=== PATIENT | female | born 1985 | race African-American/Black ===

== ENCOUNTER 2017-04-22 08:22 | Outpatient (CLI) | payer OTHER ==
--- NOTE | 2017-04-22 14:10 | ULT ---
ULTRASOUND OB COMPLETE STANDARD: HISTORY: Anatomy scan. High risk. COMPARISON: None. TECHNIQUE: Real-time doss scale and color evaluation of the gravid uterus is performed with a curvilinear trans ducer. FINDINGS: Placenta is anterior. This is separate from the cervix. Heart rate was documented at 141 b.p.m. The cervix measures 3 cm in length. The average ultrasound age is 20 weeks 1 day with estimated date of delivery 09/08/17. This is concor dant with the clinical age. Estimated weight is 13 ounces, 84th percentile. Biparietal diameter 19 weeks 3 days, 4.44 cm. Head circumference 19 weeks 3 days, 16.8 cm. Abdominal circumference 21 weeks 2 days, 16.14 cm. Femur length 20 weeks 1 day, 3.27 cm. The visualized spine including the cervicothoracic lumbar spine is normal as well as the bladder, ce rebellum, 4-chamber heart, stomach, cord insertion, posterior fossa, nose, and lips. Three-vessel c ord also normal. IMPRESSION: Normal anatomy scan with single viable intrauterine with average ultrasound 20 week 1 day, estimated date of delivery 09/08/17. POS: [facility]
== END 2017-04-22 08:23 | disposition home or self-care (01) ==
LOC: ULT 08:22
PROVIDERS: ATTEND Family Medicine
DX: O09.90 Supervision of high risk pregnancy, unspecified, unspecified trimester (principal)
CPT/HCPCS: 76805

== ENCOUNTER 2017-06-25 19:43 | Emergency (ER) | payer OTHER | END 2017-06-25 22:16 | disposition home or self-care (01) | LOC: ERS 19:43 | DX: O99.513 Diseases of the respiratory system complicating pregnancy, third trimester (principal); J11.1 Influenza due to unidentified influenza virus with other respiratory manifestations; J45.909 Unspecified asthma, uncomplicated; Z79.84 Long term (current) use of oral hypoglycemic drugs; Z3A.29 29 weeks gestation of pregnancy | CPT/HCPCS: 99283 ==

== ENCOUNTER 2017-08-30 07:58 | Outpatient (CLI) | payer OTHER ==
--- NOTE | 2017-08-30 09:38 | ULT ---
OB ULTRASOUND BIOPHYSICAL PROFILE: HISTORY: Size and dates and biophysical profile. FINDINGS: A single live intrauterine gestation is seen with measurements corresponding to an estimated gestatio nal age of 38 weeks 6 days and MARIBEL at 09/07/17. The estimated weight measures 3557 grams or 7 po unds and 13 ounces. measurements are as follows: BPD 9.77 cm, 40 weeks 0 days HC 33.71 cm, 38 weeks 5 days AC 34.47 cm, 38 weeks 3 days FL 7.54 cm, 38 weeks 4 days heart rate measures 127 bpm. OLAYINKA is 9.1 cm. The placenta is anteriorly located to the right w ithout evidence of placenta previa. presentation is vertex. A 3-vessel cord, stomach, bladder, and head are visualized. The remainder of the anatomy is not satisfactorily evaluated due to the body habitus of the patient. There is normal tone, breathing, movements, and amniotic fluid. The ultrasound biophysical pro file score is 8 out of 8. IMPRESSION: 1. Single live intrauterine of 38 weeks 6 days estimated gestational age and estimated mily e of delivery at 09/07/17. 2. Ultrasound biophysical profile score is 8 out of 8. POS: OFF
== END 2017-08-30 07:59 | disposition home or self-care (01) ==
LOC: ULT 07:58
PROVIDERS: ATTEND Family Medicine
DX: O24.414 Gestational diabetes mellitus in pregnancy, insulin controlled (principal); Z3A.38 38 weeks gestation of pregnancy
CPT/HCPCS: 76805; 76819

== ENCOUNTER 2017-09-05 05:26 | Inpatient (IN) | payer OTHER ==
[2017-09-05] MEDS ORDERED: Acetaminophen 500 MG TAB PO PRN (05:54)
[2017-09-05] MEDS ORDERED: Ondansetron HCl/PF 4 MG/2 ML Vial IVP PRN ×2 (05:54→11:01)
[2017-09-05] MEDS ORDERED: Promethazine HCl 25 MG/ML VIAL IM PRN ×2 (05:54→11:01)
[2017-09-05 05:59] VITALS: BMI 68.3
[2017-09-05] MEDS ORDERED: LR 500 ML/Oxytocin 10 units 500 ML IV SCH ×2 (06:00)
[2017-09-05] MEDS ORDERED: Misoprostol 200 MCG TAB RC PRN (06:00)
[2017-09-05] MEDS ORDERED: HYDROcodone/Acetaminophen 5/325 mg Tablet PO PRN (06:00)
[2017-09-05] MEDS ORDERED: LR / Pitocin 40 units/1000 ml 40 UNITS/1,000 ML BAG IV SCH (06:00)
[2017-09-05] MEDS ORDERED: Ibuprofen 800 MG TAB PO PRN (06:00)
[2017-09-05] MEDS ORDERED: Lidocaine 1% (PF) 30 ML VIAL SC PRN (06:00)
[2017-09-05] MEDS: Lactated Ringer's 1,000 ML IV SCH ×3 (06:13→18:46)
[2017-09-05 06:27] LABS: Mean Corpuscular HGB CONC 34.3 g/dL (32.0-36.0); Mean Corpuscular Hemoglobin 29.9 pg (27.0-31.0); Mean Corpuscular Volume 87.2 fl (81.0-99.0); Mean Platelet Volume 7.5 fL (7.4-10.4); Platelet Count 261 thou/uL (130-400); RBC Distribution Width 13.1 % (11.5-14.5); Red Blood Cell (RBC) Count 3.66 mill/uL (4.20-5.40); White Blood Cell (WBC) Count 8.2 thou/uL (4.8-10.8)
[2017-09-05 07:16] LABS: HBSAg Index 0.26 S/CO (0-0.99); Hep B Surf Ag Non-Reactive S/CO (NonReactive)
[2017-09-05 07:53] LABS: Syphilis Antibody Nonreactive (Nonreactive); Syphilis Antibody Index 0.04 S/CO (<1.00 Non-Reactive)
[2017-09-05] MEDS ORDERED: DISCONTINUE ALL PREVIOUS NARCOTICS FS SCH (09:30)
[2017-09-05] MEDS: Bupivacaine 0.5% 20 ML, Fentanyl 400 MCG in Sodium Chloride 0.9% 72 ML EPIDURAL SCH ×2 (10:26→18:05)
[2017-09-05] MEDS ORDERED: ePHEDrine/0.9% NaCl/PF SYRINGE 50 mg/10 ml SLOW IVP PRN (11:01)
[2017-09-05] MEDS ORDERED: Acetaminophen 325 MG TAB PO PRN (11:01)
[2017-09-05] MEDS ORDERED: Lactated Ringer's 500 ML IV PRN (11:01)
[2017-09-05] MEDS ORDERED: diphenhydrAMINE 50 MG/ML VIAL IVP PRN (11:01)
[2017-09-05] MEDS ORDERED: Naloxone HCl 0.4 mg/ml Vial IVP PRN ×2 (11:01)
[2017-09-05] MEDS ORDERED: Eucerin (Mineral Oil/Petrolatum,White) 30 gm Jar TOP PRN (11:01)
[2017-09-05] MEDS ORDERED: Communication Order-Pharmacy FS SCH (11:15)
[2017-09-05] MEDS ORDERED: Fentanyl 4mcg/Marcaine 0.1% Cassette 100 ML EPIDURAL SCH (11:15)
[2017-09-05] MEDS ORDERED: Lanolin Ointment 7 GM TUBE TOP PRN (21:31)
[2017-09-05] MEDS ORDERED: Milk Of Magnesia 30 ML UDCUP PO PRN (21:31)
[2017-09-05] MEDS ORDERED: LR / Pitocin 40 units/1000 ml 1,000 ML IV SCH (21:31)
[2017-09-05] MEDS ORDERED: Bisacodyl 10 MG SUPP PR PRN (21:31)
[2017-09-05] MEDS ORDERED: Docusate Calcium (SURFAK) 240 MG CAP PO SCH (21:45)
[2017-09-05] MEDS: Docusate Calcium (SURFAK) 240 MG CAP PO SCH (22:40)
[2017-09-05] MEDS: Ibuprofen 800 MG TAB PO SCH (22:40)
[2017-09-06] MEDS: HYDROcodone/Acetaminophen 5/325 mg Tablet PO PRN ×3 (02:20→20:27)
[2017-09-06] MEDS: Ibuprofen 800 MG TAB PO SCH ×3 (05:44→21:16)
[2017-09-06] MEDS: Ferrous Sulfate 325 MG TAB PO SCH ×2 (08:16→16:41)
[2017-09-06] MEDS: Docusate Calcium (SURFAK) 240 MG CAP PO SCH ×2 (09:01→20:27)
[2017-09-07] MEDS: Ibuprofen 800 MG TAB PO SCH (06:08)
[2017-09-07] MEDS: Ferrous Sulfate 325 MG TAB PO SCH (08:10)
[2017-09-07 08:12] VITALS: BP 146/79; TEMP 98.4
[2017-09-07] MEDS: Docusate Calcium (SURFAK) 240 MG CAP PO SCH (09:04)
== END 2017-09-07 10:30 | disposition home or self-care (01) | DRG 775 ==
LOC: L&D 05:26 → 3SW 21:20
PROVIDERS: ADMIT Family Medicine; ATTEND Family Medicine
PROC: 10E0XZZ Delivery of Products of Conception, External Approach (ICD-10-PCS; principal; 2017-09-05)
PROC: 0U7C7ZZ Dilation of Cervix, Via Natural or Artificial Opening (ICD-10-PCS; 2017-09-05)
PROC: 3E033VJ Introduction of Other Hormone into Peripheral Vein, Percutaneous Approach (ICD-10-PCS; 2017-09-05)
DX: O24.424 Gestational diabetes mellitus in childbirth, insulin controlled (principal); O76 Abnormality in fetal heart rate and rhythm complicating labor and delivery; Z3A.39 39 weeks gestation of pregnancy; Z37.0 Single live birth
CPT/HCPCS: 36415; 36416; 51702; 85027; 86780; 87340; C1726; J2405; J3010; J3490; J7050; J7120

== ENCOUNTER 2019-03-26 08:32 | Outpatient (CLI) | payer OTHER ==
--- NOTE | 2019-03-26 09:19 | MMO ---
Bilateral MAMMO Bilat Diag [facility]DI+[facility]. CLINICAL HISTORY: Patient is 33 years old and is seen for diagnostic exam and pain in the left breast. The patient has the following family history of breast cancer: maternal grandmother, malignant (generic). The patient has no personal history of cancer. VIEWS: The views performed were: bilateral craniocaudal with tomosynthesis; bilateral mediolateral oblique with tomosynthesis; and bilateral mediolateral with tomosynthesis. This study has been interpreted with the assistance of computer-aided detection. MAMMOGRAM FINDINGS: There are scattered fibroglandular densities. There are benign appearing calcifications seen in both breasts. There are no suspicious masses, suspicious calcifications, or new areas of architectural distortion. IMPRESSION: THERE IS NO MAMMOGRAPHIC EVIDENCE OF MALIGNANCY. A ROUTINE FOLLOW-UP MAMMOGRAM AT AGE 41 IS RECOMMENDED. THE RESULTS OF THIS EXAM WERE SENT TO THE PATIENT. ACR BI-RADS Category 2 - Benign finding MAMMOGRAPHY NOTE: 1. A negative mammogram report should not delay a biopsy if a dominant of clinically suspicious mass is present. 2. Approximately 10% to 15% of breast cancers are not detected by mammography. 3. Adenosis and dense breasts may obscure an underlying neoplasm. Reported by: DESTINY ALVARADO MD Electonically Signed: [id number]
== END 2019-03-26 08:33 | disposition home or self-care (01) ==
LOC: BICMAMMO 08:32
PROVIDERS: ATTEND Obstetrics & Gynecology
DX: N64.4 Mastodynia (principal)
CPT/HCPCS: 77066; G0279

== ENCOUNTER 2020-06-26 22:41 | Emergency (ER) | payer OTHER ==
[2020-06-26] MEDS ORDERED: Dexamethasone 10 MG/ML VIAL ONE (23:18)
[2020-06-26] MEDS ORDERED: Acetaminophen 500 MG TAB ONE (23:18)
== END 2020-06-27 00:10 | disposition home or self-care (01) ==
LOC: ERS 22:41
DX: J02.0 Streptococcal pharyngitis (principal); J45.909 Unspecified asthma, uncomplicated
CPT/HCPCS: 87430; 99283; J1100